=== PATIENT | female | born 1990 | race African-American/Black ===

== ENCOUNTER → 2020-01-19 | Emergency (ER) | payer OTHER ==
[~2020-01-19] VITALS: Ht 160 cm; Wt 91.0 kg
[~2020-01-19] MED LIST: IV NORMAL SALINE 1,000ML 1,000 ML IV SCH; KETOROLAC 15 MG/ML VIAL. IVP ONE
[2020-01-19 02:48] VITALS: BP 177/101
--- NOTE | 2020-01-19 03:04 | PHYS DOC ---
Past History Past Medical History: Hypertension Past Surgical History: No Surgical History Smoking: Cigarettes Alcohol Use: Occasionally Drug Use: Marijuana General Adult EDM: Chief Complaint: ABDOMINAL PAIN HPI: HPI: Patient is a 29 year old female who presents for evaluation of left lower abdominal and side pain. Onset of symptoms since about 12:30 AM. Patient states that she has some vaginal bleeding and is currently on her period. Patient has some nausea but no vomiting or diarrhea. No improvement of symptoms after Tylenol. Patient was otherwise benign appearing. Patient states that the symptoms do wax and wane but the cramping can be intense. Pt states she is trying to get . Review of Systems: Review of Systems: Constitutional: Denies fever or chills Eyes: Denies change in visual acuity HENT: Denies nasal congestion or sore throat Respiratory: Denies cough or shortness of breath Cardiovascular: Denies chest pain or edema GI: has left lower abdominal pain with nausea but no vomiting,no bloody stools or diarrhea : Denies dysuria Musculoskeletal: left side lower back pain noted but no joint pain Integument: Denies rash Neurologic: Denies headache, focal weakness or sensory changes Endocrine: Denies polyuria or polydipsia Lymphatic: Denies swollen glands Psychiatric: Denies depression or anxiety Heart Score: Risk Factors: Risk Factors: DM, Current or recent (<one month) smoker, HTN, HLP, family history of CAD, obesity. Risk Scores: Score 0 - 3: 2.5% MACE over next 6 weeks - Discharge Home Score 4 - 6: 20.3% MACE over next 6 weeks - Admit for Clinical Observation Score 7 - 10: 72.7% MACE over next 6 weeks - Early Invasive Strategies Allergies: Allergies: Allergies Coded Allergies Type Severity Reaction Last Updated Verified No Known Allergies Allergy Unknown 01/19/20 Yes Physical Exam: PE: Constitutional: Well developed, well nourished, moderate distress, non-toxic appearance. [] HENT: Normocephalic, atraumatic, bilateral external ears normal, oropharynx moist, no oral exudates, nose normal. [] Eyes: PERRL, EOMI, conjunctiva normal, no discharge. [] Neck: Normal range of motion, no tenderness, supple. [] Cardiovascular:Heart rate regular rhythm, no murmur [] Lungs & Thorax: Bilateral breath sounds clear to auscultation [] Abdomen: Bowel sounds normal, soft, no tenderness, no masses [] Skin: Warm, dry, no erythema, no rash. [] Back: No tenderness, left CVA tender. [] Extremities: No tenderness, no cyanosis, ROM intact, no edema. [] Neurologic: Alert and oriented X 3, normal motor function, normal sensory function, no focal deficits noted. [] Psychologic: Affect normal, judgement normal, anxious. [] Current Patient Data: Labs: Current Medications Medications (Trade) Dose Ordered Sig/Monika Route PRN Reason Start Time Stop Time Status Last Admin Dose Admin Sodium Chloride 1,000 ml @ 1,000 mls/hr Q1H IV 01/19/20 03:15 01/19/20 04:14 DC 01/19/20 03:27 Ketorolac Tromethamine (Toradol 15mg Vial) 15 mg 1X ONCE IVP 01/19/20 03:45 01/19/20 03:46 DC 01/19/20 03:46 Vital Signs: Vital Signs Date Time Temp Pulse Resp B/P (MAP) Pulse Ox O2 Delivery O2 Flow Rate FiO2 01/19/20 02:48 98.2 76 20 177/101 (126) 100 Room Air EKG: EKG: [] Radiology/Procedures: Radiology/Procedures: [place] [address] IMAGING REPORT Signed PATIENT: BOUBACAR MADRIGAL ACCOUNT: [id number] : 1990 LOCATION: ER AGE: 29 SEX: F EXAM STATUS: REG ER ORD. PHYSICIAN: PÉREZ CRESPO DO REASON: left flank pain PROCEDURE: CT ABDOMEN PELVIS WO CONTRAST Examination: CT of the abdomen pelvis were performed without contrast. HISTORY: History of left flank pain COMPARISON: None available. TECHNIQUE: Axial CT images of the abdomen pelvis were performed without contrast. Coronal and sagittal reformats are performed Exposure: One or more of the following individualized dose reduction techniques were utilized for this examination: 1. Automated exposure control 2. Adjustment of the mA and/or kV according to patient size 3. Use of iterative reconstruction technique FINDINGS: Minimal bibasilar lung atelectasis. No evidence of free air identified in the abdomen. The evaluation of the solid organs is limited due to lack of IV contrast. The evaluation of bowel is limited due to lack of oral contrast. The visualized noncontrasted liver, spleen, adrenals grossly appears unremarkable. Gallbladder is mildly distended. The stomach is mildly distended with visualized pancreas grossly appears unremarkable. The small bowel is nondilated. Feces and gas noted in the colon. The urinary bladder is mildly distended. Punctate intrarenal collecting system calculi identified in the left kidney with largest measuring 3 mm. There is mild fat stranding identified about the left ureter. Urinary bladder is mildly distended. No evidence of lytic bony destructive lesion. IMPRESSION: 1. Mild fat stranding identified about the left ureter could be secondary to pyelitis. Correlate for lab values. 2. Punctate intrarenal collecting system calculi left kidney. Electronically signed by: Bryson Ledbetter MD (01/19/2020 9:33 AM) [id number] DICTATED AND SIGNED BY: BRYSON LEDBETTER MD DATE: 01/19/20 0933 CC: PCP,NO; PÉREZ CRESPO DO ~ [] Course & Med Decision Making: Course & Med Decision Making Pertinent Labs and Imaging studies reviewed. (See chart for details) [] Dragon Disclaimer: Dragon Disclaimer: This electronic medical record was generated, in whole or in part, using a voice recognition dictation system. 0349 stable, CT scan abdomen pelvis kidney stone protocol ordered to evaluate for that left-sided abdominal and flank area pain. Patient had blood and some w marcello blood cells in her urine. stable, chart completed later since EMR went off line for rest of my shift. Rx for Keflex gien Departure Departure: Impression: Primary Impression: Pyelonephritis Additional Impression: Renal stone Disposition: HOME/RESIDENCE PRIOR TO ADM Condition: STABLE Referrals: PCP,NO (PCP) Patient Instructions: Kidney Stones, Urinary Tract Infection Justification of Admission: Justification of Admission: Justification of Admission Dx: N/A PÉREZ CRESPO DO Jan 19, 2020 03:04
[2020-01-19 03:19] LABS: BASO # 0.1 x10^3/uL (0.0-0.2); BASO % 1 % (0-3); EOS # 0.2 x10^3/uL (0.0-0.7); EOS % 2 % (0-3); HEMATOCRIT 38.2 % (36.0-47.0); LYMPH # 3.6 x10^3/uL (1.0-4.8); LYMPH % 45 % (24-48); MEAN CORPUSCULAR HEMOGLOBIN 32 pg (25-35); MEAN CORPUSCULAR HGB CONC 34 g/dL (31-37); MEAN CORPUSCULAR VOLUME 95 fL (79-100); MONO # 1.1 x10^3/uL (0.0-1.1); MONO % 14 % (0-9); NEUT % 38 % (31-73); PLATELET COUNT 290 x10^3/uL (140-400); RED BLOOD COUNT 4.03 x10^6/uL (3.50-5.40); RED CELL DISTRIBUTION WIDTH 13.6 % (11.5-14.5); WHITE BLOOD COUNT 7.9 x10^3/uL (4.0-11.0)
[2020-01-19 03:20] LABS: CALCIUM 9.2 mg/dL (8.5-10.1); CREATININE 1.2 mg/dL (0.6-1.0); GFR 65.2; POTASSIUM 3.3 mmol/L (3.5-5.1)
[2020-01-19 03:26] LABS: ALBUMIN 3.9 g/dL (3.4-5.0); ALBUMIN/GLOBULIN RATIO 1.1 (1.0-1.7); TOTAL BILIRUBIN 0.1 mg/dL (0.2-1.0); TOTAL PROTEIN 7.5 g/dL (6.4-8.2)
[2020-01-19 03:46] LABS: BILIRUBIN,URINE NEG (NEG); CLARITY,URINE HAZY; COLOR,URINE RED; GLUCOSE,URINE NEG (NEG); UROBILINOGEN,URINE 0.2 mg/dL (0.2 mg/dL)
[2020-01-19 03:47] LABS: BACTERIA,URINE FEW /HPF (0-FEW); NITRITE,URINE NEG (NEG); RBC,URINE TNTC /HPF (0-2); SQUAMOUS EPITHELIAL CELL,UR FEW /LPF
--- NOTE | 2020-01-19 09:36 | RAD ---
Examination: CT of the abdomen pelvis were performed without contrast. HISTORY: History of left flank pain COMPARISON: None available. TECHNIQUE: Axial CT images of the abdomen pelvis were performed without contrast. Coronal and sagittal reformats are performed Exposure: One or more of the following individualized dose reduction techniques were utilized for this examination: 1. Automated exposure control 2. Adjustment of the mA and/or kV according to patient size 3. Use of iterative reconstruction technique FINDINGS: Minimal bibasilar lung atelectasis. No evidence of free air identified in the abdomen. The evaluation of the solid organs is limited due to lack of IV contrast. The evaluation of bowel is limited due to lack of oral contrast. The visualized noncontrasted liver, spleen, adrenals grossly appears unremarkable. Gallbladder is mildly distended. The stomach is mildly distended with visualized pancreas grossly appears unremarkable. The small bowel is nondilated. Feces and gas noted in the colon. The urinary bladder is mildly distended. Punctate intrarenal collecting system calculi identified in the left kidney with largest measuring 3 mm. There is mild fat stranding identified about the left ureter. Urinary bladder is mildly distended. No evidence of lytic bony destructive lesion. IMPRESSION: 1. Mild fat stranding identified about the left ureter could be secondary to pyelitis. Correlate for lab values. 2. Punctate intrarenal collecting system calculi left kidney. Electronically signed by: Bryson Perry MD (01/19/2020 9:33 AM) [id number]
== END ==
LOC: ER 02:41
DX: N20.0 Calculus of kidney (principal); R10.32 Left lower quadrant pain; N93.9 Abnormal uterine and vaginal bleeding, unspecified; R11.0 Nausea; I10 Essential (primary) hypertension; F17.210 Nicotine dependence, cigarettes, uncomplicated; F12.90 Cannabis use, unspecified, uncomplicated
CPT/HCPCS: 36415; 74176; 80053; 81001; 83690; 84702; 85025; 87086; 96374; 99284; J1885; J7030